=== PATIENT | female | born 1935 | race Caucasian/White ===

== ENCOUNTER 2023-06-16 13:47 | Observation (INO) | payer OTHER ==
[~2023-06-16] VITALS: Ht 154.9 cm; Wt 79.8 kg
[2023-06-16 13:50] VITALS: BP_SYST 144; PULSE 92; RESP 18; TEMP 98.3; O2SAT 98
[2023-06-16] MEDS ORDERED: NITROGLYCERIN 1 INCH (GM) OINT. TP ONE (14:15)
[2023-06-16] MEDS ORDERED: ACETAMINOPHEN 325 MG TABLET PO ONE (14:15)
[2023-06-16] MEDS ORDERED: ASPIRIN 81 MG TAB.CHEW PO ONE (14:15)
[2023-06-16 14:29] LABS: BASOPHILS # (AUTO) 0.1 K/uL (0.0-0.2); BASOPHILS % (AUTO) 0.7 % (0.0-2.0); EOSINOPHILS # (AUTO) 0.5 K/uL (0.0-0.4); EOSINOPHILS % (AUTO) 4.5 % (0.0-4.0); HEMOGLOBIN 14.6 g/dL (12.0-16.0); LYMPHOCYTES # (AUTO) 2.6 K/uL (1.0-5.5); LYMPHOCYTES % (AUTO) 21.2 % (20.5-51.5); MEAN CORPUSCULAR HEMOGLOBIN 29 pg (27-31); MEAN CORPUSCULAR HGB CONC 33 % (32-36); MEAN CORPUSCULAR VOLUME 87 fL (79.0-98.0); MONOCYTES # (AUTO) 0.7 K/uL (0.0-1.0); NEUTROPHILS # (AUTO) 8.2 K/uL (1.8-7.7); NEUTROPHILS % (AUTO) 67.6 % (40.0-70.0); RED BLOOD CELL COUNT(AUTO) 5.06 MIL/uL (4.2-6.2); RED CELL DISTRIBUTION WIDTH 14.7 % (9.0-15.0)
[2023-06-16 14:30] LABS: WHITE BLOOD COUNT (AUTO) 12.1 K/uL (4.8-10.8)
[2023-06-16 14:43] LABS: ANION GAP 9 (5-15); CALCIUM 9.7 mg/dL (8.4-11.0); CARBON DIOXIDE 24 mmol/L (23-29); CHLORIDE 104 mmol/L (98-107); CREATININE 1.31 mg/dL (0.55-1.30); GLUCOSE 116 mg/dL (74-106); POTASSIUM 4.1 mmol/L (3.5-5.1); SODIUM SERUM 137 mmol/L (136-145); UREA NITROGEN, BLOOD 15 mg/dL (8-21)
[2023-06-16 14:47] LABS: PLATELET COUNT (AUTO) 189 K/uL (130-430)
[2023-06-16 14:50] LABS: ALANINE AMINOTRANSFERASE 17 U/L (12-78); ALBUMIN 3.6 g/dL (3.4-4.8); ASPARTATE AMINOTRANSFERASE 13 U/L (10-37); TOTAL BILIRUBIN 0.5 mg/dL (0.0-1.0); TOTAL PROTEIN, SERUM 6.9 g/dL (6.4-8.3)
[2023-06-16] MEDS ORDERED: FUROSEMIDE 40 MG/4 ML VIAL IVP ONE (16:00)
[2023-06-16 16:42] LABS: INFLUENZA TYPE A Negative (NEGATIVE); INFLUENZA TYPE B NEGATIVE (NEGATIVE)
[2023-06-16] MEDS ORDERED: LOSA50TA28 PO (19:12)
[2023-06-16] MEDS ORDERED: ASPI-524 PO (19:14)
[2023-06-16 20:37] VITALS: BP_SYST 131; PULSE 59; RESP 24; TEMP 98.1
[2023-06-16 21:27] VITALS: O2SAT 96
[2023-06-17] VITALS: BP_SYST 136; PULSE 87; RESP 20; TEMP 98.6
[2023-06-17 08:00] VITALS: BP_SYST 131; PULSE 48; RESP 16; TEMP 98.4; O2SAT 100; O2SAT 97
[2023-06-17 10:33] LABS: THYROID STIMULATING HORMONE 3.7 uIu/mL (0.34-4.82)
[2023-06-17 12:00] VITALS: BP_SYST 115; PULSE 42; RESP 15; TEMP 97.4; O2SAT 95
[2023-06-17] MEDS ORDERED: FUROSEMIDE 20 MG/2 ML VIAL IVP ONE (13:00)
[2023-06-17 16:00] VITALS: BP_SYST 121; PULSE 43; RESP 17; TEMP 97.5; O2SAT 97
[2023-06-17 20:00] VITALS: BP_SYST 138; PULSE 81; RESP 20; TEMP 98.6; O2SAT 100; O2SAT 95
[2023-06-17] MEDS: LOSARTAN POTASSIUM 50 MG TABLET (COZAAR) PO SCH (20:59)
[2023-06-17] MEDS: FUROSEMIDE 20 MG/2 ML VIAL IVP SCH (21:00)
[2023-06-17] MEDS: CARVEDILOL 3.125 MG TABLET (COREG) PO SCH (21:00)
[2023-06-17] MEDS: ACETAMINOPHEN 325 MG TABLET PO PRN (22:33)
[2023-06-18] VITALS (7 sets, daily range): BP systolic 102–148; PULSE 41–88; RESP 14–20; TEMP 97.7–98.8; O2SAT 93–97
[2023-06-18] MEDS ORDERED: COR3.125 PO (07:32)
[2023-06-18] MEDS: LOSARTAN POTASSIUM 50 MG TABLET (COZAAR) PO SCH (09:00)
[2023-06-18] MEDS ORDERED: ASPIRIN 81 MG TAB.CHEW PO SCH (09:00)
[2023-06-18] MEDS: FUROSEMIDE 20 MG/2 ML VIAL IVP SCH (09:00)
[2023-06-18] MEDS: CARVEDILOL 3.125 MG TABLET (COREG) PO SCH ×2 (09:00→11:37)
[2023-06-18] MEDS: ACETAMINOPHEN 325 MG TABLET PO PRN (11:40)
== END 2023-06-18 17:30 | disposition home or self-care (01) ==
LOC: SED 13:47 → STU 17:43
PROVIDERS: ADMIT Specialist; ATTEND Specialist
DX: I42.9 Cardiomyopathy, unspecified (principal); Z20.822 Contact with and (suspected) exposure to COVID-19; I34.0 Nonrheumatic mitral (valve) insufficiency; I27.20 Pulmonary hypertension, unspecified; I13.0 Hypertensive heart and chronic kidney disease with heart failure and stage 1 through stage 4 chronic kidney disease, or unspecified chronic kidney disease; I50.9 Heart failure, unspecified; N18.9 Chronic kidney disease, unspecified; I45.4 Nonspecific intraventricular block; R73.03 Prediabetes; Z79.899 Other long term (current) drug therapy; Z87.891 Personal history of nicotine dependence
CPT/HCPCS: 96374; 80053; 83880; 85025; 84484 ×2; 36415 ×3; 71045; 99285; 87804 ×2; 87426; 96376; 84443; 93306; 83735; 93005; J1940 ×2; G0378 ×3